=== PATIENT | female | born 1960 | race African-American/Black ===

== ENCOUNTER 2017-01-14 09:40 | Outpatient (CLI) | payer OTHER ==
--- NOTE | 2017-01-14 10:04 | RAD ---
RIGHT KNEE FOUR VIEWS: History: Right knee pain. FINDINGS: Joint spaces are preserved. No acute fracture, dislocation, or fluid distention of the suprapatellar bursa is apparent. IMPRESSION: No acute osseous abnormalities are demonstrated. POS: [facility]
== END 2017-01-14 09:41 | disposition home or self-care (01) ==
LOC: RAD-FRANK 09:40
PROVIDERS: ATTEND Internal Medicine
DX: N20.0 Calculus of kidney (principal)

== ENCOUNTER → 2017-03-14 | Day surgery (SDC) | payer OTHER ==
[2017-03-13 10:50] VITALS: BMI 19.6
[~2017-03-14] MED LIST: Fentanyl 100 MCG/2 ML VIAL ONE; Fentanyl 250 MCG/5 ML VIAL ONE; Furosemide 20 MG/2 ML VIAL ONE; Iothalamate Meglumine 60% 50 ML VIAL FS ONE; Midazolam HCl 2 mg/2 ml Vial ONE; Phenazopyridine HCl 97.5 MG TABLET ONE; cefTRIAXone\\ROCEPHIN 2 GM in Sodium Chloride 0.9% 100 ML IVPB SCH
[2017-03-14 06:47] LABS: #Eosinphils 0.7 thou/uL (0.0-0.7); #Monocytes 0.4 thou/uL (0.11-0.59); #Neutrophils 2.4 thou/uL (1.40-6.50); %Basophils 0.5 % (0.0-1.0); %Eosinophils 13.2 % (0.0-10.0); %Lymphocytes 36.2 % (21.0-51.0); %Monocytes 6.5 % (0.0-10.0); Hematocrit 35.7 % (36.0-47.0); Mean Platelet Volume 7.1 fL (7.4-10.4); Red Blood Cell (RBC) Count 3.69 mill/uL (4.20-5.40); White Blood Cell (WBC) Count 5.5 thou/uL (4.8-10.8)
[2017-03-14 07:13] LABS: Anion Gap 12 mmol/L (10-20); BUN (Urea Nitrogen) 8 mg/dL (9.8-20.1); Calc. Creatinine Clearance 85 mL/min (70-130); Calcium 9.9 mg/dL (7.8-10.44); Carbon Dioxide 26 mmol/L (22-29); Chloride 106 mmol/L (98-107); Estimated GFR-MDRD Greater than 90
--- NOTE | 2017-03-14 08:32 | RAD ---
TWO VIEWS CHEST: HISTORY: Preoperative chest radiograph. TECHNIQUE: PA and lateral views of the chest are obtained. FINDINGS: The lungs are well aerated. No evidence of active intrathoracic disease is seen. No evidence of eff usions, pneumonia, or pneumothorax is seen. IMPRESSION: Normal two views chest. POS: [facility]
--- NOTE | 2017-03-14 10:51 | OP ---
DATE OF PROCEDURE: 03/14/2017 PREOPERATIVE DIAGNOSES: 1. Bilateral renal calculi, staghorn type, N20.0 - B. 2. Recurrent Extended-Spectrum Beta-Lactamase Escherichia coli urinary tract infection, N39.0. 3. Postmenopausal status, N95.2. POSTOPERATIVE DIAGNOSES: 1. Bilateral renal calculi, staghorn type, N20.0 - B. 2. Recurrent Extended-Spectrum Beta-Lactamase Escherichia coli urinary tract infection, N39.0. 3. Postmenopausal status, N95.2. OPERATIVE PROCEDURES PERFORMED: 1. Left-sided extracorporeal shock wave lithotripsy, 77288 - L. 2. Right-sided extracorporeal shock with lithotripsy, 00889 - R. 3. Cystourethroscopy with bilateral stents, 96610 - B. 4. Left-sided retrograde pyelography, 68058. SURGEON: Gomez Goss M.D. BRIEF HISTORY AND INDICATION FOR HOSPITALIZATION AND PROCEDURES: Mr. 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 Schulte for her history of recurrent ESBL E. 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 The patient presented today for lithotripsy and stent placement as initial treatments for bilateral apparently germ-laden kidney ston es. TECHNICAL PROCEDURE: The patient was appropriately identified in the preoperative holding area. She was transported to the operative suite, placed in the supine position on a Dornier lithotripter tabl e. The patient underwent induction of general anesthesia by LMA and was positioned appropriately for cystoscopic evaluation. We performed cystoscopic evaluation using a 22-Cameroonian cystoscope sheath and a 30-degree lens. We introduced the scope sheath using an obturator to evaluate the patient's bladd er. There was efflux visible from left and right ureteric orifices and chronic changes associated wi th chronic cystitis. Cystoscopic evaluation was performed. We identified the left ureteric orifice and placed a 0.035 angled Glidewire into the left ureter and advanced this to the level of the renal pelvis. This identified some stones and some of which was faint in coloration suggesting possible st ruvite type stone. We placed a 5-Cameroonian Pollack catheter for irrigation during the course of the pro cedure in addition to introduction of contrast as necessary. We performed lithotripsy using a total of 1700 shocks to achieve reasonable destruction of the staghorn calculus on the left. We then perfo rmed cystoscopic evaluation again, performed retrograde pyelography in the left collecting system and then obtained adequate positioning for stent placement using a 0.035 angled Glidewire. We positione d a 4.5-Cameroonian x 28 cm ACMI stent in good position in the patient's collecting system adjacent to the fragmented stone. We removed the string from this and left the stent indwelling. The patient then underwent evaluation on the right side. We placed a 4.5-Cameroonian x 28 cm stent in the right collecting system. Using #fluorography, we could easily see that this was a much denser stone with lamella characteristic to it. There was only 1 large stone in the collecting system with multi ple layers present. We placed a 4.5 Cameroonian x 28 cm stent in the right collecting system also removin g the string from this stent. The patient received a total of 1700 shocks of lithotripsy on the left side to the staghorn with good destruction on the right side. We administered approximately 3500 sh ocks with partial destruction of the large stone. The patient intraoperatively received approximatel y 2.5 liters of IV fluid and 20 mg of Lasix. She was treated with gentamicin and Rocephin as prophyl axis for her ESBL E. coli. The patient's bladder was drained during the course of the cystoscopic ev aluation. She was subsequently awakened and transported from the operative suite in good condition a nd transferred to the postoperative recovery area breathing on her own. COMPLICATIONS: None. DRAINS: A two 4.5 x 28 cm double-J ureteral stents, one on the left ureteral and one on the right. ESTIMATED BLOOD LOSS: Less than 10 mL OPERATIVE FINDINGS: Good destruction on the left and apparent partial obstruction on the right, also bilateral stenting. Follow up in my office in about 2 weeks' time after a CT stone protocol study p erformed here at [facility].
--- NOTE | 2017-03-17 12:19 | EKG ---
Test Reason : PREOP Blood Pressure : / mmHG Vent. Rate : 048 BPM Atrial Rate : 048 BPM P-R Int : 164 ms QRS Dur : 088 ms QT Int : 428 ms P-R-T Axes : 063 037 052 degrees QTc Int : 382 ms Marked sinus bradycardia Early repolarization Abnormal ECG Confirmed by JESSICA SMITH ([id number]) on 03/17/2017 12:19:13 PM Referred By: BERNARDO GARCIA Confirmed By:JESSICA SMITH
== END ==
LOC: SDC 05:57
PROVIDERS: ATTEND Urology
PROC: 0TF6XZZ Fragmentation in Right Ureter, External Approach (ICD-10-PCS; principal; 2017-03-14)
PROC: 0T788DZ Dilation of Bilateral Ureters with Intraluminal Device, Via Natural or Artificial Opening Endoscopic (ICD-10-PCS; principal; 2017-03-14)
PROC: 0TF7XZZ Fragmentation in Left Ureter, External Approach (ICD-10-PCS; principal; 2017-03-14)
DX: N20.0 Calculus of kidney (principal); N39.0 Urinary tract infection, site not specified; B96.29 Other Escherichia coli [E. coli] as the cause of diseases classified elsewhere; F17.210 Nicotine dependence, cigarettes, uncomplicated; I10 Essential (primary) hypertension; K21.9 Gastro-esophageal reflux disease without esophagitis; Z78.0 Asymptomatic menopausal state; Z79.899 Other long term (current) drug therapy; Z98.890 Other specified postprocedural states
CPT/HCPCS: 71020; 80048; 85025; 87070; 87102; 87205; 87206; 93005; 93010; 96374; C1758; C1769; J0696; J1580; J1940; J2250; J3010; J7050; Q9961

== ENCOUNTER 2017-04-08 13:34 | Outpatient (CLI) | payer OTHER ==
--- NOTE | 2017-04-08 15:28 | CT ---
CT ABDOMEN AND PELVIS WITHOUT CONTRAST STONE PROTOCOL: HISTORY: Kidney stones. Bilateral kidney stones with stents in both ureters. Pain to the right flank. COMPARISON: Comparison with CT 09/27/16. FINDINGS: Bilateral in situ stents of the ureters are present. There is mild bilateral perinephric stranding. There are very large calculi within the right interpolar renal collecting system and the left inferi or and intrarenal collecting systems extending to the renal pelvis. The urinary bladder is without c alculus. No calculi are seen along the ureteral stents. Overall, the perinephric stranding has impr tom since the 09/27/16 examination on the right, although is similar on the left. Noncontrast evaluation of the liver, pancreas, spleen unremarkable. Nonspecific retroperitoneal foreign opathy is present, similar. These mildly prominent lymph nodes are likely reactive. Mild degenerati ve changes of both hips seen below the pubic symphysis. IMPRESSION: Extensive calcifications throughout the renal pelves bilaterally with casting appearance that is oracle distribution consultant mariluz in nature. The ureteral stents are in situ. Perinephric stranding on both kidneys is improved f rom the comparison examination, although some does persist, likely sequelae of low-grade chronic obst ructive process. POS: [facility]
== END 2017-04-08 13:35 | disposition home or self-care (01) ==
LOC: CT 13:34
PROVIDERS: ATTEND Urology
DX: N20.0 Calculus of kidney (principal); N39.0 Urinary tract infection, site not specified; N28.89 Other specified disorders of kidney and ureter
CPT/HCPCS: 74176

== ENCOUNTER 2017-04-28 08:56 | Inpatient (IN) | payer OTHER ==
[2017-05-09 08:54] VITALS: BMI 19.6
[2017-05-12] MEDS ORDERED: CEFAZOLIN/Water 2 GM/20 ML SYRINGE ONE (06:36)
[2017-05-12] MEDS ORDERED: Iothalamate Meglumine 60% 50 ML VIAL FS ONE ×2 (06:44→07:08)
[2017-05-12 07:02] LABS: Anion Gap 11 mmol/L (10-20); BUN (Urea Nitrogen) 8 mg/dL (9.8-20.1); Calc. Creatinine Clearance 80 mL/min (70-130); Calcium 10.3 mg/dL (7.8-10.44); Carbon Dioxide 32 mmol/L (22-29); Chloride 102 mmol/L (98-107); Estimated GFR-MDRD 88; Glucose 91 mg/dL (70-105); Potassium 3.5 mmol/L (3.5-5.1); Sodium 141 mmol/L (136-145)
[2017-05-12] MEDS ORDERED: Fentanyl 100 MCG/2 ML VIAL ONE ×4 (07:06→13:55)
[2017-05-12 09:26] LABS: Bilirubin Negative (Negative); Blood, Urine Large (Negative); Clarity TURBID (Clear); Glucose, Urine (Dipstick) Negative (Negative); Leukocyte Large (Negative); Nitrite Negative (Negative); Protein, Urine (Dipstick) 300 mg/dL (Neg-Trace); Specific Gravity, Urine 1.019 (1.002-1.036); Urobilinogen 0.2 mg/dL (0.2-1.0); pH, Urine 7.5 (5.0-9.0)
[2017-05-12 09:28] LABS: Bacteria/HPF None Seen HPF (None Seen); Pathc Cast-AUWi Flag 1.81 (0-2.49); RBC/HPF GREATER THAN 50-TNTC HPF (0-3); Squamous Epithelial 0-3 HPF (0-3)
[2017-05-12 09:35] LABS: Hyaline Casts/LPF 0-3 HYALINE CAST LPF (0-3 Hyaline)
[2017-05-12] MEDS ORDERED: Promethazine HCl 25 MG/ML VIAL ONE (13:19)
[2017-05-12] MEDS ORDERED: Labetalol HCl 100 MG/20 ML VIAL ONE (13:22)
[2017-05-12] MEDS ORDERED: Promethazine HCl 25 MG/ML VIAL IM PRN (13:25)
[2017-05-12] MEDS ORDERED: Ondansetron HCl/PF 4 MG/2 ML Vial IVP PRN (13:25)
[2017-05-12] MEDS ORDERED: Promethazine HCl 25 MG/ML VIAL SLOW IVP PRN (13:25)
[2017-05-12] MEDS ORDERED: Morphine 5 MG/ML SYRINGE SLOW IVP PRN (14:42)
[2017-05-12] MEDS ORDERED: diphenhydrAMINE 25 MG CAP PO PRN ×2 (14:46→14:47)
[2017-05-12] MEDS ORDERED: Dexamethasone 20 MG/5 ML VIAL ONE (14:54)
[2017-05-12] MEDS ORDERED: Lidocaine 1% PF 5 ML VIAL ONE (14:54)
[2017-05-12] MEDS ORDERED: PHENYLEPHRINE-NS 100 MCG/ML 10 ML SYRINGE ONE (14:54)
[2017-05-12] MEDS ORDERED: Propofol 200 MG/20 ML VIAL ONE (14:54)
[2017-05-12] MEDS ORDERED: Ondansetron HCl/PF 4 MG/2 ML Vial ONE (14:54)
--- NOTE | 2017-05-12 14:54 | OP ---
DATE OF PROCEDURE: 05/12/2017 PREOPERATIVE DIAGNOSES: 1. Bilateral renal calculi, N20.0 bilateral. 2. History of sepsis. 3. Pyelonephritis. 4. Recurrent urinary tract infection N39.0. OPERATIVE PROCEDURES PERFORMED: 1. Left-sided percutaneous nephrolithotomy greater than 2.5 cm, 93561-AL. 2. Right-sided percutaneous nephrolithotomy with greater than 2.5 cm, 61007-MW- [id number]. 3. Right renal access with dilation, 82591-YF-01. SPECIMENS REMOVED: Left renal calculi for chemical analysis. BRIEF HISTORY AND INDICATION FOR HOSPITALIZATION, Ms. 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 Schulte to my clinic for recurrent ESBL Escherichia coli urinary tract infection with history of nephrolithiasis. The patient has had 5 UTIs in the last year with the same organism and has had progressively increasing resistance. She has had pyelonephritis type symptoms as well as sepsis evidence in the past. The patient is admitted for treatment of bilateral kidney stones after previous extracorporeal shockwave lithotripsy was performed. TECHNICAL PROCEDURE: The patient was appropriately identified in the preoperative holding area and informed written consent obtained. The patient was transported to the operative suite, placed in the supine position on her transport bed and received general anesthesia by intubation. After general endotracheal intubation, the patient was subsequently rolled to the prone superman position using a gel padded neuro table. The patient was then fluorographically evaluated and was noted to have radiodensities overlying both left and right kidney. She has bilateral indwelling percutaneous nephrostomy tubes and bilateral double-J stents. A Smith catheter was placed prior to going to the patient to the prone superman position. The patient's back was then prepped and draped in usual sterile fashion, removing existing dressings and prepping the upper tubes into place. We initiated her procedure on the patient's right side. We performed tract dilation by placing a 0.035 angled Glidewire down the existing nephrostomy tube subsequently angling this down the patient's ureter. The patient's tube was found to lie inferior to the location of the radiodensity observed fluorographically. We did go ahead and dilate the tract in case there was a secondary access into the collecting system on that side performed cutaneous pyelography and did demonstrate that the stone collection appeared to communicate with the patient's renal pelvis. Only small amount of dye would enter into the area where the stone was located. We subsequently performed a secondary access using a Rivono percutaneous renal access system. We placed a 25 gauge finder needle into the patient's kidney into the area of calcification. I then placed an 18 gauge secondary needle into this same location using fluorographic guidance. We passed a 0.035 angled Glidewire also down this wire subsequently performed dilation of the tract. We utilized a fascial incising needle and [employer] NephroMax dilation balloon. We dilated the tract to 30-East Timorese. We advanced an access sheath over this and performed nephroscopy of the patient's collecting system. We found areas of calcification in the rhodes of the cyst in which we had entered. A large amount of the radiodensity cleared during irrigation suggesting calcium milk present in this area. There did remain a shell of calcification suggesting a degree of nephrocalcinosis of the patient's renal parenchyma in this location. We were not able to identify any intact stones, although some small stone particles were identified as well as an existing stent on the patient's right side. After percutaneous nephroscopy, we placed a 0.035 secondary Glidewire and then passed a 20-East [place]orese moapa tip catheter over the Glidewire into the patient's collecting system. We placed a secondary 20- [place]se tube into the patient's collecting system via the lateral access that we had created. We placed two 5-East Timorese Pollack catheters through the lumen of these moapa tipped catheters and secured these to the patient's side. We estimated blood loss at this point was about 150 mL. There were no stone fragments which are large enough recovery at this point. We then sterilely reprepped on the patient's left side. I performed a similar procedure using a dilation balloon and the existing percutaneous nephrostomy tract. An existing percutaneous nephrostomy tube was removed after placement of a 0.035 angled Glidewire in the patient's collecting system. We then advanced this into the patient's ureter adjacent to the existing stent. The patient then had a secondary wire placed. We secured the safety wire to the patient's side with silk. We then performed fascial incising with a 1 cm blade and subsequently balloon dilated the tract using the NephroMax system. We advanced the access sheath into the patient's renal collecting system and then utilized the nitinol NCircle basket to recover some stone fragments from previous ESWL. These fragments were sent for chemical analysis. The patient's collecting system was then cleared of residual degrees using ultrasonic lithotripter. The patient's collecting system was essentially left stone free by fluorographic evaluation. We placed a new nephrostomy tube, a 20-East Timorese moapa tip catheter over a 5- [place]orese Pollack catheter which was advanced into the patient's ureter. The catheter was placed to bag drainage. The patient has an existing ureteral stent on the left side as well. The drain was secured to the patient's side using 0 silk suture. One skin level bleeder was cauterized. A sterile dressing was applied to both the left and right sides and securing the patient' s back using Microfoam tape. An existing Smith catheter was left in place. SPECIMENS: Left-sided kidney stone for chemical analysis. All the stone was not recovered, most of this was suctioned out. DRAINS: The patient has 2 right-sided drains which are both 20-East Timorese catheters with 5-East Timorese Pollack catheters through the lumen. The patient has an indwelling Smith catheter. On the patient's right side, there is a 20- East [place]orese moapa tip catheter with a 5-East Timorese Pollack reaccess catheter. The patient has existing bilateral double-J stents which remained in position. COMPLICATIONS: None. Total blood loss 300 mL COMPLICATIONS: None evident. Lap, instrument, and needle counts correct at the end of the procedure. [facility]
[2017-05-12] MEDS: Sodium Chloride 0.9% 1,000 ML IV SCH ×3 (16:21→23:57)
--- NOTE | 2017-05-12 18:50 | RAD ---
KUB: Date: 05-12-17 Comparison: None. History: Bilateral percutaneous nephrostomy tube placement. FINDINGS: Lobulated calcification in right upper quadrant suggests large right renal calculus measuring up to 3 .9 x 3.6 cm. Calcification in left upper quadrant measures up to 1.7 cm, evidence of an additional la rge renal stone. There is a double J ureteral stent present on the left with a curl overlying the exp ected location of the left renal pelvis and a curl within the urinary bladder. There is an additional internal external drain on the left which terminates over the distal left ureter. There is an help desk internship al/external drain on the right, terminating over the region of the distal right ureter. Two segments of catheter tubing overlie the right upper quadrant suggesting percutaneous drains. A similar single percutaneous drain overlies the left upper quadrant. In addition, there is a segment of tubing which overlies the expected location of the distal right ureter extending into the urinary bladder which rodgers ggests a distally migrated right double J ureteral stent. IMPRESSION: Bilateral renal calculi with numerous stents associated with bilateral tracts. POS: [facility]
[2017-05-12] MEDS: CEFAZOLIN 1 GM, Syringe 2.5 ML in Sterile Water 7.5 ML SLOW IVP SCH (21:02)
[2017-05-13] MEDS: HYDROcodone/Acetaminophen 5/325 mg Tablet PO PRN ×4 (00:44→19:55)
[2017-05-13] MEDS: CEFAZOLIN 1 GM, Syringe 2.5 ML in Sterile Water 7.5 ML SLOW IVP SCH (05:21)
[2017-05-13 06:11] LABS: #Monocytes 0.4 thou/uL (0.11-0.59); #Neutrophils 4.8 thou/uL (1.40-6.50); %Basophils 0.1 % (0.0-1.0); %Eosinophils 0.4 % (0.0-10.0); %Lymphocytes 16.3 % (21.0-51.0); %Monocytes 6.5 % (0.0-10.0); %Neutrophils 76.7 % (42.0-75.0); Hemoglobin 8.2 g/dL (12.0-16.0); Mean Corpuscular HGB CONC 32.3 g/dL (32.0-36.0); Mean Corpuscular Hemoglobin 30.5 pg (27.0-31.0); Mean Corpuscular Volume 94.6 fl (81.0-99.0); Mean Platelet Volume 7.3 fL (7.4-10.4); Platelet Count 258 thou/uL (130-400); RBC Distribution Width 14.5 % (11.5-14.5); Red Blood Cell (RBC) Count 2.69 mill/uL (4.20-5.40); White Blood Cell (WBC) Count 6.3 thou/uL (4.8-10.8)
[2017-05-13 06:51] LABS: ALT (SGPT) 7 U/L (8-55); AST (SGOT) 14 U/L (5-34); Albumin 3.1 g/dL (3.5-5.0); Alkaline Phosphatase 78 U/L (40-150); Anion Gap 11 mmol/L (10-20); BUN (Urea Nitrogen) 8 mg/dL (9.8-20.1); Bilirubin, Total 0.2 mg/dL (0.2-1.2); Calc. Creatinine Clearance 65 mL/min (70-130); Calcium 8.2 mg/dL (7.8-10.44); Carbon Dioxide 25 mmol/L (22-29); Chloride 107 mmol/L (98-107); Estimated GFR-MDRD 70; Globulin 2.6 g/dL (2.4-3.5); Glucose 117 mg/dL (70-105); Potassium 3.7 mmol/L (3.5-5.1); Protein, Total 5.7 g/dL (6.0-8.3); Sodium 139 mmol/L (136-145)
[2017-05-13] MEDS: Sodium Chloride 0.9% 1,000 ML IV SCH ×3 (06:51→19:41)
[2017-05-13] MEDS: Vancomycin HCl 1 GM in Premix Bag 1 BAG IVPB SCH ×2 (10:46→22:40)
[2017-05-13] MEDS: Piperacillin/Tazobactam 3.375 GM in Sodium Chloride 0.9% 100 ML IVPB SCH ×2 (10:46→18:00)
--- NOTE | 2017-05-13 10:53 | CT ---
CT OF THE ABDOMEN AND PELVIS WITHOUT CONTRAST: Comparison: 04-08-17 History: Kidney stones. Status post lithotripsy percutaneously. Technique: Multiple contiguous axial images were obtained in a CT of the abdomen and pelvis without c ontrast. Coronal reformats were performed. FINDINGS: Patient has bilateral percutaneous nephrostomies. The left percutaneous nephrostomy appears in good p osition within the hilar region. The right percutaneous nephrostomy passes immediately adjacent to a large stone in the right hilar region of the kidney and is seen in the more anterior aspect of the ki dney. This could be within an enlarged marion anteriorly. A calcification on the right measures 3.5 cm in size. There are calcifications on the left measuring up to 6 mm in size. Ureteral stents are seen with their pigtail portions in the urinary bladder. A Smith catheter is seen within the urinary blad shantelle. There is hyperdense material in the gallbladder which could represent sludge or stones. There is a hy podensity in the right lobe of liver measuring 1.4 cm in size which could represent a cyst. The adren al glands, spleen, and pancreas are unremarkable although evaluation is limited on this noncontrast e xamination. A moderate amount of free fluid is seen in the pelvis which is nonspecific. The reproductive organs a re unremarkable. There are small retroperitoneal lymph nodes measuring up to 1.3 cm in greatest dimen naren. No pelvic adenopathy is seen. There is bibasilar atelectasis. The abdominal wall soft tissues are unremarkable. The bones are unrem arkable. IMPRESSION: 1. Bilateral percutaneous nephrostomy tubes as above. 2. Bilateral renal calculi. 3. Nonspecific free fluid in the pelvis. This could represent simple ascites, however, a urine leak i nto the peritoneal cavity is also a possibility. 4. Hepatic cyst. POS: [facility]
[2017-05-13] MEDS: Acetaminophen 325 MG TAB PO PRN ×2 (12:02→19:56)
[2017-05-13] MEDS: Ondansetron ODT 8 MG TAB PO PRN (12:05)
--- NOTE | 2017-05-13 13:20 | RAD ---
PERCUTANEOUS NEPHROSTOMY WITH FLUOROSCOPY: HISTORY: Renal calcifications. FINDINGS/IMPRESSION: A single limited intraoperative fluoroscopic view from a percutaneous nephrostomy was submitted for i nterpretation. There are large calcifications projecting over the right kidney. There appears to be a percutaneous nephrostomy tube. There is also a pigtail catheter in the region of the renal pelvis, which extends down the ureter. POS: [facility]
--- NOTE | 2017-05-13 13:29 | RAD ---
PERCUTANEOUS NEPHROSTOMY TUBE WITH FLUOROSCOPIC EXAM: HISTORY: Nephrolithiasis. Nephrostomy tube placement in the OR. FINDINGS/IMPRESSION: A single limited intraoperative fluoroscopic view was submitted for interpretation. A wire is seen i n the location where a percutaneous nephrostomy tube would be present, on the left. There is also a ureteral stent with the pigtail portion of the catheter projecting over the region of the left renal pelvis. There are small calcifications projecting over the left kidney. POS: [facility]
[2017-05-14] MEDS: Piperacillin/Tazobactam 3.375 GM in Sodium Chloride 0.9% 100 ML IVPB SCH ×3 (01:20→18:12)
[2017-05-14] MEDS: HYDROcodone/Acetaminophen 5/325 mg Tablet PO PRN ×4 (01:21→20:11)
[2017-05-14] MEDS: Sodium Chloride 0.9% 1,000 ML IV SCH ×3 (05:16→22:40)
[2017-05-14] MEDS: Acetaminophen 325 MG TAB PO PRN ×3 (05:16→20:06)
[2017-05-14] MEDS: Ondansetron ODT 8 MG TAB PO PRN (09:55)
[2017-05-14] MEDS: Vancomycin HCl 1 GM in Premix Bag 1 BAG IVPB SCH ×2 (11:12→22:40)
[2017-05-14 22:24] LABS: Vancomycin, Trough 11.9 ug/mL
[2017-05-14] MEDS ORDERED: Simethicone Chewable 80 MG TAB PO PRN (23:16)
--- NOTE | 2017-05-14 23:32 | PRG ---
DATE OF SERVICE: 05/14/2017. BRIEF HISTORY: Ms. Anu De Los Santos is a very pleasant 57-year-old - [place] female with bilateral nephrolithiasis and a history of extended spectrum beta lactamase-resistant E. coli with history of multiple recurrent urinary tract infections and pyelonephritis episodes as well as bilateral kidney stones. She presented on 05/12/2017 and underwent bilateral percutaneous nephrolithotomy procedure. Postoperatively, she has developed a fever. She has had cultures drawn, which so far have not grown any organisms. We did change her antibiotic regimen to Zosyn and vancomycin yesterday. The patient overall reports that she feels well, except she is having some nausea troubles. She is not eating during the day secondary to that as it makes her feel bloated. I discussed with her if she was having any pain symptoms at this point. She does not report any actual pain that is not well controlled with her current medication regimen. She does have 2 percutaneous nephrostomy tubes on the left, 1 percutaneous nephrostomy tube on the right, bilateral indwelling double-J stents, and a Smith catheter is essentially completely drained from the urinary system standpoint. PHYSICAL EXAMINATION: VITAL SIGNS: T-max is 100.2. Vital signs are otherwise normal. HEAD, EYES, EARS, NOSE, AND THROAT: Extraocular movements are intact. Sclerae are anicteric. Oropharynx is clear. NECK: Supple. LUNGS: Clear to auscultation bilaterally. CARDIAC: Regular rate and rhythm. ABDOMEN: Soft and nontender. Percussion reveals increased resonance in all 4 quadrants consistent with an ileus. The 2 tubes on the left appeared appropriately positioned, did not appear to be draining abnormally. The drainage is only coming from one of the 2 tubes, which is the more medial of the 2 tubes. The drainage output appears normal with normal clear urine and a very small amount of blood, which settles out. The patient's right side appears very similar to that. Smith catheter does have a degree of gross hematuria present. LABORATORY STUDIES: The patient's blood cultures x2 were negative for growth. Urine culture also negative for growth. The patient has no other labs from today. ASSESSMENT AND PLAN: 1. Bilateral kidney stones with extended spectrum beta lactamase Escherichia coli exposure and history of recurrent pyelonephritis episodes as well as recurrent urinary tract infections. We will plan on proceeding to the operating room on Friday for second look PCNL procedure if the patient continues to improve. 2. Infectious disease. The patient does have a decreasing temperature profile on current antibiotic therapy. I suspect the patient's extended spectrum beta lactamase Escherichia coli would be the causative agent given the past pyelonephritis episodes and exposure of her stones to the extended spectrum beta lactamase Escherichia coli. We did additionally add vancomycin for coverage of MRSA because she has percutaneous nephrostomy tubes, which have been present for over a week. The patient does appear to be improving from a medical standpoint and I suspect she may be suitable to return to the operating room on Friday if she has continued progress. This bedside visit lasted over 35 minutes over half of ic was in direct face to face evaluation and in coordination of care, exclusive of any procedures performed. [id number] MTDD
[2017-05-15] MEDS: Piperacillin/Tazobactam 3.375 GM in Sodium Chloride 0.9% 100 ML IVPB SCH ×3 (01:54→17:49)
[2017-05-15] MEDS: HYDROcodone/Acetaminophen 5/325 mg Tablet PO PRN ×4 (09:10→22:42)
[2017-05-15] MEDS: Vancomycin HCl 1 GM in Premix Bag 1 BAG IVPB SCH ×2 (11:36→22:44)
[2017-05-15] MEDS: Sodium Chloride 0.9% 1,000 ML IV SCH ×3 (13:15→22:13)
[2017-05-15 16:14] LABS: CA Oxalate Dihydrate 20 % (.); CA Oxalate Monohydrate 75 % (.); Color Brown (.); Comment Note: (.); Stone Weight 230.3 mg (.)
[2017-05-15] MEDS: Ondansetron ODT 8 MG TAB PO PRN (22:13)
[2017-05-15] MEDS ORDERED: ALPRAZolam 1 MG TAB PO PRN (22:25)
[2017-05-15 22:30] LABS: Vancomycin, Trough 15.4 ug/mL
--- NOTE | 2017-05-15 23:48 | PRG ---
DATE OF HOSPITAL ADMISSION: 05/13/2017 DATE OF SERVICE: 05/15/2017 BRIEF HISTORY: Ms. 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 HOSPITAL COURSE: The patient has been doing reasonably well overnight, but had return of bowel function today and has been nauseated and recently developed diarrhea. She is on antibiotic coverage for a fever which she had earlier in the week. Her fever has resolved on vancomycin and Zosyn. T-max in the last 24 hours is 100.2 F with the highest temperature is today of 99.7. PHYSICAL EXAMINATION: GENERAL: This is a pleasant, awake, alert, ambulatory, -Pakistani female in no distress. She does report discomfort associated with resulting ileus. She has some diarrhea today. She did have a bowel preparation prior to her operation on Friday and has had relatively slow bowel function secondary to narcotics and bladder spasm medications. The patient did have resolution of her ileus today with production of loose stool consistent with the patient's bowel preparation prior to her procedure. The patient continues with PCN tubes to both the left and right kidney. The patient is tolerating those reasonably well. She does have an indwelling Smith catheter as well. LUNGS: No respiratory distress. No wheezing. Lungs clear. CARDIAC: Regular rate and rhythm. ABDOMEN: Soft and nontender with hyperactive bowel sounds noted. BACK: Percutaneous nephrostomy tubes as previously noted and remain in place and draining more or less straw colored urine with a small amount of bloody particulate. LABORATORY STUDIES: The patient has not had standard laboratories in the last 24 hours. Her microbiology evaluation from 05/13/2017 showed no growth and her blood cultures at 48 hours and her urine culture has been negative at 48 hours as well, consistent with the patient's appropriate coverage on preoperative antibiotics. ASSESSMENT AND PLAN: Bilateral residual kidney stones. The patient will proceed to the operating room for bilateral percutaneous nephrolithotomy on Friday05/16/2017. We will make her n.p.o., place her on FLORY hose and sequential compression devices and plan on proceeding to the operating room on Friday. This bedside visit lasted over 35 minutes over half of ic was in direct face to face evaluation and in coordination of care, exclusive of any procedures performed. [id number] [facility]
[2017-05-16] MEDS: Piperacillin/Tazobactam 3.375 GM in Sodium Chloride 0.9% 100 ML IVPB SCH ×3 (01:52→22:00)
[2017-05-16] MEDS: Sodium Chloride 0.9% 1,000 ML IV SCH ×3 (03:50→22:24)
[2017-05-16] MEDS: HYDROcodone/Acetaminophen 5/325 mg Tablet PO PRN ×2 (05:17→10:29)
[2017-05-16 05:51] LABS: Hemoglobin 6.1 g/dL (12.0-16.0)
[2017-05-16 06:12] LABS: ALT (SGPT) Less than 7 U/L (8-55); AST (SGOT) 12 U/L (5-34); Albumin 2.5 g/dL (3.5-5.0); Alkaline Phosphatase 73 U/L (40-150); Anion Gap 7 mmol/L (10-20); BUN (Urea Nitrogen) 7 mg/dL (9.8-20.1); Bilirubin, Total 0.3 mg/dL (0.2-1.2); Calc. Creatinine Clearance 81 mL/min (70-130); Calcium 8.2 mg/dL (7.8-10.44); Carbon Dioxide 26 mmol/L (22-29); Chloride 112 mmol/L (98-107); Estimated GFR-MDRD 89; Globulin 2.6 g/dL (2.4-3.5); Glucose 90 mg/dL (70-105); Potassium 3.2 mmol/L (3.5-5.1); Protein, Total 5.1 g/dL (6.0-8.3); Sodium 142 mmol/L (136-145)
[2017-05-16] MEDS: Vancomycin HCl 1 GM in Premix Bag 1 BAG IVPB SCH ×2 (11:48→22:24)
[2017-05-16] MEDS ORDERED: Iothalamate Meglumine 60% 50 ML VIAL FS ONE (15:00)
[2017-05-16] MEDS ORDERED: Bupivacaine HCl 0.5%/Epinephrine 1:200,000/PF 30 ml Vial ONE (15:00)
[2017-05-16] MEDS ORDERED: Glycopyrrolate 0.2 MG/ML 5 ML SYRINGE ONE (15:07)
[2017-05-16] MEDS ORDERED: Propofol 200 MG/20 ML VIAL ONE (15:07)
[2017-05-16] MEDS ORDERED: Lidocaine 1% PF 5 ML VIAL ONE (15:07)
[2017-05-16] MEDS ORDERED: Fentanyl 100 MCG/2 ML VIAL ONE ×3 (15:27→21:09)
[2017-05-16] MEDS ORDERED: Midazolam HCl 2 mg/2 ml Vial ONE (15:27)
[2017-05-16] MEDS ORDERED: Piperacillin/Tazobactam 3.375 GM VIAL ONE (16:19)
[2017-05-16] MEDS ORDERED: B & O ONE (20:35)
[2017-05-16] MEDS ORDERED: Furosemide 20 MG/2 ML VIAL ONE (20:46)
--- NOTE | 2017-05-16 20:59 | RAD ---
NEPHROSTOGRAM: 05/16/17 Four fluoroscopic images from OR presented from cysto with stent placement and lithotripsy procedure. FINDINGS/IMPRESSION: These films demonstrate percutaneous nephrostomy placement and lithotripsy procedure. POS: REY
[2017-05-16] MEDS ORDERED: Promethazine HCl 25 MG/ML VIAL IM PRN (21:10)
[2017-05-16] MEDS ORDERED: Promethazine HCl 25 MG/ML VIAL SLOW IVP PRN (21:10)
[2017-05-16] MEDS ORDERED: Ondansetron HCl/PF 4 MG/2 ML Vial IVP PRN (21:10)
[2017-05-16] MEDS ORDERED: HYDROmorphone 2 MG/ML VIAL SLOW IVP PRN (21:10)
[2017-05-17] MEDS: Piperacillin/Tazobactam 3.375 GM in Sodium Chloride 0.9% 100 ML IVPB SCH ×2 (01:53→10:04)
[2017-05-17] MEDS: Sodium Chloride 0.9% 1,000 ML IV SCH ×2 (06:13→15:56)
--- NOTE | 2017-05-17 07:31 | OP ---
DATE OF HOSPITAL ADMISSION: 05/12/2017 DATE OF PROCEDURE: 05/16/2017 PREOPERATIVE DIAGNOSES: 1. Bilateral renal calculi, N20.0 - B. 2. History of ESBL Escherichia coli urinary tract infection with sepsis symptoms and bilateral kidney stone contamination, N39.0. 3. History of pyelonephritis. 4. Recurrent urinary tract infection due to same organism. POSTPROCEDURAL DIAGNOSES: 1. Bilateral renal calculi, N20.0 - B. 2. History of ESBL Escherichia coli urinary tract infection with sepsis symptoms and bilateral kidney stone contamination, N39.0.. 3. History of pyelonephritis. 4. Recurrent urinary tract infection due to same organism. OPERATIVE PROCEDURES PERFORMED: 1. Bilateral percutaneous nephrolithotomy with ultrasonic lithotripsy greater than 2 cm, [id number]. 2. Cystourethroscopy with bilateral stent placement, [id number]. BRIEF HISTORY AND INDICATION FOR PROCEDURE: Ms. 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 She was referred by Dr. Schulte to my clinic due to recurrent ESBL Escherichia coli urinary tract infection with a history of nephrolithiasis. The patient had at least 5 UTIs in the last year with the same organism with progressively increasing antibiotic resistance. The patient had a pyelonephritis symptoms as well as sepsis in the past due to this. She elected to undergo initial treatment by ESWL and this did not results resolution of her stone problem. Instead she had persistence of stones in both of her kidneys. She opted to undergo percutaneous nephrolithotomy and presented for her initial portion of that procedure on 05/12/2017. Today, she opted to proceed to the operating room for a second bilateral percutaneous nephrolithotomy procedure and we did proceed with that today. TECHNICAL PROCEDURE: The patient was appropriately identified in the preoperative holding area, informed written consent was obtained. The patient received her current prophylactic antibiotics and was transported to the operative suite, placed in the supine position. Initially general anesthesia was established and the patient was then turned prone on a radiolucent spine table for the percutaneous nephrolithotomy procedure. All contact points with the bed were appropriately padded. The patient's chest and pelvis were supported with large 10-inch foam rolls. Gel padding or appropriate foam padding was utilized in other occasions. Once the patient was turned to the prone position, the existing dressings were removed from her bilateral percutaneous nephrostomy tubes. A Smith catheter was already in place from her previous for treatment. The patient underwent sterile prep and drape in usual fashion. We then proceeded with a right-sided percutaneous nephrolithotomy using an existing tract. We performed ultrasonic lithotripsy of a large stone that was previously seen on CT scan imaging. We tried to clear all the fragments that we could. There did appear to be 1 mid upper pole marion which we could not access via our accesses. After complete clearance of all the visible stone, we placed a 20-Japanese port gamble tip catheter with a 5-Japanese Pollack reaccess catheter if necessary. The patient had this catheter sutured to her side. Sterile dressing was applied at the close of the procedure with regard to that. We then subsequently reprepped the patient at this time addressing her right- sided kidney stones after previously addressing the left side. Two tubes in place on the right side and by CT scan imaging and fluorographic evaluation to establish the stone lie between these two catheters. We performed a careful evaluation and found that an endothelialization of the calculus had occurred. We performed combination ultrasonic lithotripsy with pneumatic impulse treatment of the large, over 2 cm stone on the patient's right side. During the course of this procedure, we did remove the lateral access to the patient's kidney this partially obstructed stone removal. We performed complete lithotripsy, completely clearing the patient's left kidney of any stone fragments. We utilized the ultrasonic lithotripter to clear adherent stone fragments as well. We left the collecting system completely clear by fluorographic evaluation. We placed a reaccess catheter into the more medial of the two accesses and placed a 5 Japanese Pollack catheter via that into the patient's ureter for immediate reaccess if required. Balloon on the right side was inflated to 300 mL as it had been on the left side as well. The catheter was then sutured to the patient's back. We applied sterile dressing and then turned the patient to the supine lithotomy position. The patient was reprepped and draped, performed cystoscopic evaluation, recovered to dislodge stents out of the patient's bladder and then placed two 4.5 Japanese x 28 cm double-J ureteral stents into the bilateral ureters to allow drainage of the collecting system for any stone fragments that we were missed. The patient was subsequently returned to the supine position, was awakened and extubated in the operative suite. She was transferred to a rrandolph bed. Due the patient's starting hematocrit of 18, we opted to treat the patient with 2 units of red blood cells during the operation and in addition 1800 mL of crystalloid was utilized. Estimated blood loss for this procedure is 300 mL. Specimens recovered from the right kidney were sent for chemical analysis as these were large. We did perform ultrasonic lithotripsy on the patient's left side, but these fragments were not recovered for chemical analysis. DRAINS AND TUBES: A total of 2 stents were removed and 2 stents were placed during this operation. Three percutaneous nephrostomy tubes were removed and replaced with 2 new nephrostomy tubes, 1 on the left and 1 on the right. OPERATIVE FINDINGS: The patient has very dense probable calcium oxalate type stone, which is present in layers suggesting possible incorporation of microorganism in the multilayer stones. We achieved good clearance of the patient's stone burden on the right side and at least a fair clearance of a stone burden on the left. The remaining calices that contained stone are inaccessible without performing additional percutaneous access or ureteroscopy. COMPLICATIONS: None. Lap, instrument, and needle counts correct. DISPOSITION: The patient transported to the postoperative recovery area in good condition. TARA
[2017-05-17] MEDS: HYDROcodone/Acetaminophen 5/325 mg Tablet PO PRN ×2 (08:22→12:55)
[2017-05-17 10:24] LABS: Vancomycin, Trough 15.9 ug/mL
[2017-05-17] MEDS: Vancomycin HCl 1 GM in Premix Bag 1 BAG IVPB SCH (11:15)
[2017-05-17 12:13] VITALS: BP 142/88; TEMP 98.4
--- NOTE | 2017-05-17 13:13 | CT ---
PRELIMINARY REPORT/[facility]/EMERGENCY AFTER HOURS PROCEDURE: EXAM: CT Abdomen and Pelvis Without Intravenous Contrast CLINICAL HISTORY: 57 years old, female; Screening exam; Post surgical status; Pcnl; Percutaneous nephrolithotomy; Prior surgery; Surgery date: Post-operative (0-2 days); Patient HX: S/P percutaneous nephrolithotomy TECHNIQUE: Axial computed tomography images of the abdomen and pelvis without intravenous contrast. Coronal refo rmatted images were created and reviewed. COMPARISON: No relevant prior studies available. FINDINGS: Lower thorax: Small left pleural effusion. Left greater than right dependent atelectasis. Small peric ardial effusion. ABDOMEN: Liver: Unremarkable. Gallbladder and bile ducts: Unremarkable. Pancreas: Unremarkable. Spleen: See below. Adrenals: Normal. 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 Multiple small stone fragments and calcifications in both kidneys includ ing in the renal pelvis on the right, along with bubbles of collecting system gas. Bilateral percutaneous nephroureterostomy tubes and ureteral stents. 2 mm stone suggested along the midportion of the right ureter. Otherwise, no ureteral stone identified. Moderate bilateral perinephric fat stra nding and ill-defined fluid extending along the pararenal spaces bilaterally. Stranding along the ure ters. Small amount of intermediate density suggestive of hematoma along the quadratus lumborum on the left containing a few bubbles of gas. Minimal dense fluid in the posterior pararenal space on the ri ght. Mild bilateral hydronephrosis. Stomach and bowel: Gaseous distention of large and small bowel loops without discernible transition p oint. Decompressed loops of small bowel noted on the right and intermittently elsewhere. Appendix: No findings to suggest acute appendicitis. PELVIS: Bladder: Dependent density posteriorly on the left and urinary bladder suggestive of tiny stones. Reproductive: Unremarkable. ABDOMEN and PELVIS: Intraperitoneal space: Small amount of free fluid around the spleen and in the pelvis. No free air. Bones/joints: Unremarkable. No acute fracture. Soft tissues: Unremarkable. Vasculature: Unremarkable. Lymph nodes: Multiple subcentimeter to mildly enlarged retroperitoneal lymph nodes. IMPRESSION: 1. Postprocedural changes involving both kidneys with multiple small stone fragments, collecting syst em air, and moderate perinephric and pararenal fluid with small amount of hematoma and mild hydroneph rosis. Tiny stones in the urinary bladder. Bulge along the lateral aspect of the right kidney presumably representing a lobulation, parenchymal lesion or subcapsular collection not excluded. 2. Gaseous distention of large and small bowel likely representing ileus. 3. Small amount of ascites. Small left pleural effusion. Thank you for allowing us to participate in the care of your patient. Dictated and Authenticated by: Maulik Robledo MD 05/17/2017 7:25 AM Central Time ([place] & [place]) FINAL REPORT CT ABDOMEN AND PELVIS WITHOUT CONTRAST: Date: 05/17/17 FINDINGS/IMPRESSION: I agree with the preliminary report given by Olivia. Compared to the exam of 05/13/12, the previously noted 2.5 cm calculus in the right kidney is not see n on the current exam. The left-sided pleural effusion has increased in size. POS: REY
[2017-05-17 14:45] LABS: #Eosinphils 0.1 thou/uL (0.0-0.7); #Monocytes 0.8 thou/uL (0.11-0.59); %Basophils 0.5 % (0.0-1.0); %Eosinophils 0.6 % (0.0-10.0); %Lymphocytes 10.2 % (21.0-51.0); %Monocytes 7.6 % (0.0-10.0); %Neutrophils 81.1 % (42.0-75.0); Hemoglobin 9.3 g/dL (12.0-16.0); Mean Corpuscular HGB CONC 32.7 g/dL (32.0-36.0); Mean Corpuscular Hemoglobin 30.4 pg (27.0-31.0); Mean Corpuscular Volume 92.8 fl (81.0-99.0); Mean Platelet Volume 6.7 fL (7.4-10.4); Platelet Count 267 thou/uL (130-400); RBC Distribution Width 13.7 % (11.5-14.5); Red Blood Cell (RBC) Count 3.07 mill/uL (4.20-5.40); White Blood Cell (WBC) Count 9.8 thou/uL (4.8-10.8)
[2017-05-17 15:20] LABS: ALT (SGPT) Less than 7 U/L (8-55); AST (SGOT) 13 U/L (5-34); Albumin 3.1 g/dL (3.5-5.0); Alkaline Phosphatase 83 U/L (40-150); Anion Gap 14 mmol/L (10-20); BUN (Urea Nitrogen) 6 mg/dL (9.8-20.1); Bilirubin, Total 0.5 mg/dL (0.2-1.2); Calc. Creatinine Clearance 66 mL/min (70-130); Calcium 8.5 mg/dL (7.8-10.44); Carbon Dioxide 23 mmol/L (22-29); Chloride 108 mmol/L (98-107); Estimated GFR-MDRD 72; Globulin 3.4 g/dL (2.4-3.5); Glucose 107 mg/dL (70-105); Potassium 2.8 mmol/L (3.5-5.1); Protein, Total 6.5 g/dL (6.0-8.3); Sodium 142 mmol/L (136-145)
--- NOTE | 2017-05-17 22:15 | DIS ---
DATE OF ADMISSION: 05/12/2017 DATE OF DISCHARGE: 05/17/2017 REASON FOR HOSPITAL ADMISSION: 1. Bilateral renal calculi, N20.0 - B. 2. History of extended spectrum beta-lactamases, recurrent Escherichia coli urinary tract infection with sepsis symptoms and bilateral kidney stone contamination. 3. History of pyelonephritis. 4. Recurrent urinary tract infection history. DISCHARGE DIAGNOSES: 1. Bilateral renal calculi, N20.0 - B. 2. History of extended spectrum beta-lactamases, recurrent Escherichia coli urinary tract infection with sepsis symptoms and bilateral kidney stone contamination. 3. History of pyelonephritis. 4. Recurrent urinary tract infection history. OPERATIVE PROCEDURES PERFORMED DURING HOSPITALIZATION: 1. Bilateral percutaneous nephrolithotomy with ultrasonic lithotripsy greater than 2 cm, [id number] on 05/16/2017 as a second look procedure. 2. Cystourethroscopy with bilateral stent placement, [id number] on 05/16/2015. 3. Left-sided percutaneous nephrolithotomy greater than 2.5 cm, [id number] on . 4. Right-sided percutaneous nephrolithotomy greater than 2.5 cm, [id number] on 05/12/2017. 5. Right-sided renal access with dilation, [id number] on 05/12/2017. BRIEF HISTORY AND INDICATION FOR HOSPITALIZATION AND PROCEDURE: Ms. 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 The patient had 5 ESBL UTIs within the last year, evidently the same organism and had progressively increasing resistance. The patient previously had pyelonephritis type symptoms as well as sepsis episode in the past. She had bilateral kidney stones identified on previous evaluation and did undergo a previous extracorporeal shockwave lithotripsy, which resulted in no clearance of stone. The patient presented to clinic and made an active decision to proceed with percutaneous left nephrolithotomy as treatment of her stones. HOSPITAL COURSE: The patient was admitted on 05/12/2017 and underwent a right- sided percutaneous nephrolithotomy greater than 2.5 cm and a right renal access with dilation. The patient tolerated the procedure well, but subsequent follow up CT scan imaging did not demonstrate complete clearance of stone. The patient opted to proceed with a second look PCNL procedure, which was performed on 05/16/2017. The patient during her hospitalization did have a bout of diarrhea was associated with recovery from her ileus and also antibiotic therapy. She did have testing for C. diff colitis, which turned out negative. The patient had initial fevers and antibiotic regimen was switched to vancomycin and Zosyn during the course of hospitalization. We did not culture any organisms out of her urine during her hospitalization and the patient was maintained on her IV antibiotic regimen through the postoperative day #1. DISCHARGE INSTRUCTIONS: The patient will follow up at the [facility] on , 05/22/2017 and a time to be scheduled with the patient. DISCHARGE MEDICATIONS: Include the followin. VESIcare 10 mg 1/2 to 1 tablet p.o. every day or every other day. 2. Tramadol 50 mg p.o. q.6 h. p.r.n. pain. 3. Macrobid 100 mg p.o. b.i.d. 4. Urocit-K 10 mEq p.o. t.i.d., this medication to be taken while sitting upright with adequate volumes of water and the patient should minimize use of her VESIcare while on that medication. The patient will continue using Premarin vaginal cream applied to the urethra on a nightly basis. WOUND SITE CARE: The patient has urostomy appliances on both the left and right percutaneous nephrostomy access sites. Her secondary access site on the right flank was suture closed in the operative suite. DISCHARGE DRAINS AND TUBES: The patient has bilateral indwelling double-J ureteral stents, which will need to undergo followup evaluation and assessment. She is known to have a 2 mm right ureteral stone and has an approximately 5 mm left renal calculus in place as well as some debris from her percutaneous nephrolithotomy. The patient will follow up in clinic to discuss scheduling for followup plans. 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 She intend to leave in place for about 6 weeks and obtain follow up imaging. The patient has significant residual stone burden that should probably to be addressed ureteroscopically after removal of her indwelling stents. The patient will continue on bladder spasm medications and pain medication as required. She may also take over the counter AZO as an additional agent. MTDD
[2017-05-22 10:21] LABS: CA Oxalate Dihydrate 10 % (.); CA Oxalate Monohydrate 10 % (.); CA Phosphate 65 % (.); CA Phosphate 80 % (.); Color Tan (.); Comment Note: (.); Mg Ammon Phos 30 % (.); Stone Weight 21.6 mg (.); Stone Weight 491.7 mg (.)
== END 2017-05-17 16:00 | disposition home or self-care (01) | DRG 660 ==
LOC: INTOOBSV 05-12 05:57 → SURG A 05-12 05:57 → OBSVTOIN 05-13 08:50
PROVIDERS: ADMIT Urology; ATTEND Urology
PROC: 0TC13ZZ Extirpation of Matter from Left Kidney, Percutaneous Approach (ICD-10-PCS; principal; 2017-05-12)
PROC: 0TC03ZZ Extirpation of Matter from Right Kidney, Percutaneous Approach (ICD-10-PCS; 2017-05-12)
PROC: 0TC13ZZ Extirpation of Matter from Left Kidney, Percutaneous Approach (ICD-10-PCS; 2017-05-16)
PROC: 0TC03ZZ Extirpation of Matter from Right Kidney, Percutaneous Approach (ICD-10-PCS; 2017-05-16)
PROC: 0T788DZ Dilation of Bilateral Ureters with Intraluminal Device, Via Natural or Artificial Opening Endoscopic (ICD-10-PCS; 2017-05-16)
DX: N20.2 Calculus of kidney with calculus of ureter (principal); K56.7 Ileus, unspecified; R50.82 Postprocedural fever; Z87.891 Personal history of nicotine dependence; I12.9 Hypertensive chronic kidney disease with stage 1 through stage 4 chronic kidney disease, or unspecified chronic kidney disease; N18.9 Chronic kidney disease, unspecified
CPT/HCPCS: 36415; 36430; 74018; 74176; 74425; 76001; 80048; 80053; 80202; 81001; 82365; 85014; 85018; 85025; 86850; 86900; 86901; 87040; 87086; 87324; 87449; 88300; 96374; A4216; C1758; C1769; J0670; J0690; J1100; J1940; J2001; J2250; J2270; J2405; J2543; J2550; J2704; J3010; J3370; J7050; P9016; Q9961

== ENCOUNTER 2017-05-05 07:24 | Day surgery (SDC) | payer OTHER ==
[2017-05-02 16:46] VITALS: BMI 19.0
[~2017-05-05 07:24] MED LIST changes: +FLU VACC QS2017-18 36 mo. & older 0.5 ML SYRINGE IM ONE; -Fentanyl 100 MCG/2 ML VIAL ONE; -Fentanyl 250 MCG/5 ML VIAL ONE; -Furosemide 20 MG/2 ML VIAL ONE; -Iothalamate Meglumine 60% 50 ML VIAL FS ONE; -Midazolam HCl 2 mg/2 ml Vial ONE; -Phenazopyridine HCl 97.5 MG TABLET ONE; -cefTRIAXone\\ROCEPHIN 2 GM in Sodium Chloride 0.9% 100 ML IVPB SCH
[2017-05-05 07:53] LABS: #Basophils 0.1 thou/uL (0.0-0.2); #Eosinphils 0.8 thou/uL (0.0-0.7); #Lymphocytes 1.7 thou/uL (1.20-3.40); #Monocytes 0.3 thou/uL (0.11-0.59); #Neutrophils 2.3 thou/uL (1.40-6.50); %Basophils 1.2 % (0.0-1.0); %Eosinophils 15.8 % (0.0-10.0); %Lymphocytes 31.9 % (21.0-51.0); %Monocytes 5.8 % (0.0-10.0); %Neutrophils 45.3 % (42.0-75.0); Hemoglobin 11.4 g/dL (12.0-16.0); Mean Corpuscular HGB CONC 31.8 g/dL (32.0-36.0); Mean Corpuscular Hemoglobin 30.2 pg (27.0-31.0); Mean Corpuscular Volume 94.8 fl (81.0-99.0); Mean Platelet Volume 6.7 fL (7.4-10.4); Platelet Count 301 thou/uL (130-400); Red Blood Cell (RBC) Count 3.77 mill/uL (4.20-5.40); White Blood Cell (WBC) Count 5.2 thou/uL (4.8-10.8)
[2017-05-05 08:00] LABS: PTT 29.1 SEC (22.9-36.1); Prothrombin Time 13.1 SEC (12.0-14.7)
[2017-05-05] MEDS ORDERED: Midazolam HCl 2 mg/2 ml Vial ONE ×2 (08:35→09:39)
[2017-05-05] MEDS ORDERED: Fentanyl 100 MCG/2 ML VIAL ONE ×2 (08:58→09:39)
[2017-05-05] MEDS ORDERED: cefTRIAXone\\ROCEPHIN 1 GM, Syringe 0.4 ML in Sterile Water 9.6 ML SLOW IVP ONE (09:00)
[2017-05-05 10:59] VITALS: BP 104/85; TEMP 98.8
[2017-05-05] MEDS ORDERED: Iopamidol 300 61% 50 ML VIAL FS ONE (11:17)
--- NOTE | 2017-05-05 12:33 | SPC ---
RIGHT PERCUTANEOUS NEPHROSTOMY CATHETER PLACEMENT LEFT PERCUTANEOUS NEPHROSTOMY CATHETER PLACEMENT: CONSCIOUS SEDATION: 3 mg Versed, IV. 150 mcg Fentanyl, IV. Fluoro time=15 minutes. FINDINGS: After explaining the procedure and answering all questions, the patient was placed on the fluoroscopy table in prone position. Over the course of the exam, a total of 50 cc Isovue 300 contrast was give n IV for opacification of the renal collecting systems. Sterile technique, buffered local anesthesia, conscious sedation, fluoroscopic guidance, and a right posterolateral approach were used to carefully advance a 22-gaute AccuStick needle to the right super ior pole calyx that was markedly dilated around a large stone. A small amount of contrast was inject ed to confirm position. A 0.018 guidewire was then placed, and AccuStick technique was used to place a 0.035 J-wire. The tract was dilated to 8 Colombian. An 8 Colombian Uresil catheter was placed at the r enal pelvis. The catheter was secured externally with 0 silk suture and buffered local anesthesia. The catheter was capped, given that the right system is not obstructed. Attention was then turned to the left kidney. Sterile technique, buffered local anesthesia, consciou s sedation, fluorosocpic guidance, and a left posterolateral approach were used to carefully advance a 22-gauge AccuStick needle to the mildly distended posterior inferior pole collecting system where s tones are present. A 0.018 guidewire was placed. AccuStick technique was then used to place a 0.035 J-wire into the collecting system. The tract was dilated to 8 Colombian, and an 8 Colombian Uresil cathet er was placed in the renal collecting system and capped, given that the system was not obstructed. T he catheter was secured externally with 0 silk suture and buffered local anesthesia. The patient tolerated the procedure well and was returned to the holding area in good condition for f urther monitoring. IMPRESSION: Technically successful bilateral percutaneous nephrostomy catheter placement. The patient will follo wup clinically with Dr. Goss. POS: [facility]
== END 2017-05-05 13:00 | disposition home or self-care (01) ==
LOC: SPEC 07:24
PROVIDERS: ATTEND Urology
PROC: 0TH533Z Insertion of Infusion Device into Kidney, Percutaneous Approach (ICD-10-PCS; principal; 2017-05-05)
DX: N39.0 Urinary tract infection, site not specified (principal); N95.2 Postmenopausal atrophic vaginitis; N20.0 Calculus of kidney; I12.9 Hypertensive chronic kidney disease with stage 1 through stage 4 chronic kidney disease, or unspecified chronic kidney disease; N18.9 Chronic kidney disease, unspecified; K21.0 Gastro-esophageal reflux disease with esophagitis; F17.210 Nicotine dependence, cigarettes, uncomplicated; Z79.899 Other long term (current) drug therapy; Z98.891 History of uterine scar from previous surgery; Z98.890 Other specified postprocedural states; Z87.440 Personal history of urinary (tract) infections
CPT/HCPCS: 36415; 50430; 50431; 50432; 82565; 85025; 85610; 85730; 99152; 99153; A4216; C1729; J0696; J2250; J3010

== ENCOUNTER 2017-07-23 09:23 | Outpatient (CLI) | payer OTHER | END 2017-07-23 09:24 | disposition home or self-care (01) | LOC: BICCT 09:23 | PROVIDERS: ATTEND Urology | DX: N20.0 Calculus of kidney (principal); Z96.0 Presence of urogenital implants | CPT/HCPCS: 74176 ==

== ENCOUNTER 2017-08-15 06:42 | Day surgery (SDC) | payer OTHER ==
[2017-08-14 16:38] VITALS: BMI 19.1
[2017-08-15] MEDS ORDERED: cefTRIAXone\\ROCEPHIN 2 GM in Sodium Chloride 0.9% 100 ML IVPB ONE (07:15)
[2017-08-15] MEDS ORDERED: cefTRIAXone\\ROCEPHIN 2 GM in Sodium Chloride 0.9% 100 ML IVPB SCH (07:15)
[2017-08-15 07:25] LABS: #Basophils 0.1 thou/uL (0.0-0.2); #Eosinphils 0.6 thou/uL (0.0-0.7); #Lymphocytes 1.9 thou/uL (1.20-3.40); #Monocytes 0.4 thou/uL (0.11-0.59); #Neutrophils 2.9 thou/uL (1.40-6.50); %Basophils 1.3 % (0.0-1.0); %Eosinophils 10.7 % (0.0-10.0); %Lymphocytes 32.7 % (21.0-51.0); %Monocytes 6.6 % (0.0-10.0); %Neutrophils 48.8 % (42.0-75.0); Hemoglobin 10.9 g/dL (12.0-16.0); Mean Corpuscular HGB CONC 33.4 g/dL (32.0-36.0); Mean Corpuscular Hemoglobin 31.5 pg (27.0-31.0); Mean Corpuscular Volume 94.4 fl (81.0-99.0); Platelet Count 260 thou/uL (130-400); RBC Distribution Width 15.3 % (11.5-14.5); Red Blood Cell (RBC) Count 3.45 mill/uL (4.20-5.40); White Blood Cell (WBC) Count 5.9 thou/uL (4.8-10.8)
[2017-08-15 07:50] LABS: Anion Gap 11 mmol/L (10-20); BUN (Urea Nitrogen) 14 mg/dL (9.8-20.1); Calc. Creatinine Clearance 55 mL/min (70-130); Calcium 9.6 mg/dL (7.8-10.44); Carbon Dioxide 27 mmol/L (22-29); Chloride 106 mmol/L (98-107); Estimated GFR-MDRD 59; Glucose 83 mg/dL (70-105); Sodium 140 mmol/L (136-145)
[2017-08-15] MEDS ORDERED: Fentanyl 100 MCG/2 ML VIAL ONE (09:20)
[2017-08-15] MEDS ORDERED: Lidocaine 4% Topical Sol 50 ML BOT ONE (09:35)
[2017-08-15] MEDS ORDERED: B & O ONE (11:33)
[2017-08-15] MEDS ORDERED: Morphine 4 MG/ML VIAL ONE (12:02)
--- NOTE | 2017-08-15 12:11 | OP ---
DATE OF PROCEDURE: 08/15/2017 POSTOPERATIVE DIAGNOSES: 1. Bilateral nephrolithiasis, 1020.0. 2. History of recurrent urinary tract infection due to infected stone. 3. History of urethral stricture disease and low estrogen state, currently on esterase treatment. POSTOPERATIVE DIAGNOSES: 1. Bilateral nephrolithiasis, 1020.0. 2. History of recurrent urinary tract infection due to infected stone. 3. History of urethral stricture disease and low estrogen state, currently on esterase treatment. 4. Bilateral stent placement. PROCEDURES PERFORMED: 1. Cystourethroscopy with bilateral ureteroscopy with laser lithotripsy, 20560. 2. Cystoscopy with bilateral stent placement, 88618. 3. Left-sided retrograde pyelography, 23947. 4. Female urethral dilation, 80479. SPECIMENS REMOVED: 1. Left renal stones. 2. Right renal stones, all for chemical analysis. ESTIMATED BLOOD LOSS: Less than 10 mL. COMPLICATIONS: None. BRIEF HISTORY AND INDICATION FOR PROCEDURE: Mr. Anu De Los Santos is a very pleasant 57-year-old Afri [place] female with a history of bilateral large kidney stones with recurrent urinary tract infe ction that could not be cleared. The patient had an infected kidney stones and underwent previous bi lateral percutaneous nephrolithotomy. She had some residual stone burden. She presented today for t reatment of bilateral residual stones by ureteroscopic means. TECHNICAL PROCEDURE: The patient was appropriately identified in the preoperative holding area. Inf ormed consent was obtained. The patient was brought to the operative suite, placed in the supine pos ition, prepped and draped in usual sterile fashion. Cystoscopic assessment was performed using a 22- Slovak cystoscope with a 30 degree lens. We introduced the scope using an obturator. The patient miranda s notable urethral stricture disease. During the course of the procedure, we performed urethral dila tion from 16 Slovak to 36 Slovak using metallic sounds. This achieved appropriate dilation of the pa tient's urethra. Cystoscopic evaluation was performed using the cystoscope, we identified left and r ight indwelling stents and removed both of those at the initiation of the procedure. We then perform ed a cystoscopic assessment again placing 2 wires into the patient's right ureter initially and then placed a 12/14 Slovak applied ureteral access sheath, 28 cm in length. This was advanced to the leve l of the renal pelvis and the obturator for that removed. We removed one of the 2 wires. We exclude d 1 wire when we placed the access sheath. Fluoroscopic assessment suggested proper positioning of t he sheath and we then advanced the ureteroscope in the patient's renal pelvis on the right. We ident ified 1 stone which was then fragmented using holmium laser into multiple fragments, we recovered jimmy e of these for chemical analysis, fragments too small for recovery using a 0 tip nitinol basket were left in place and were small enough in diameter that they should have no problem passing. We then p laced a new 4.5 Slovak x 28 cm double-J ureteral stent [employer] without a string. We then turned o ur attention to the patient's left side. We repeated almost an identical procedure except we found a much larger stone on this side. Here we utilized the holmium laser in dusting type settings with 0. 5 joules delivered at 20 Hz. again, dusted the stone into multiple small fragments, some of which we later recovered using a 0 tip nitinol basket. Specimens were sent for chemical analysis. We subsequ ently removed the access sheath and then utilized the previously excluded left-sided Glidewire for st ent placement. We again placed a 4.5 Slovak x 28 cm double-J ureteral stent in the patient's left co llecting system. We removed the string from that stent as well. The patient's bladder was completel y drained at the close of the procedure. A belladonna and opioid suppository was applied per rectum for bladder spasm control following the procedure. She tolerated the procedure well, subsequently aw akened and extubated and transported from the operative suite in good condition. COMPLICATIONS: None. DRAINS AND TUBES: The patient has bilateral 4.5 x 28 stents. SPECIMENS: Specimens are the left and right renal stones.
--- NOTE | 2017-08-15 12:53 | RAD ---
RETROGRADE IVP: History: Renal calculi. Comparison: None. FINDINGS: Intraoperative fluoroscopy provided for Dr. Goss. Fluoroscopic images demonstrate placement of bilat eral ureteral stents. There is dilatation of the right intrarenal collecting system. IMPRESSION: Fluoroscopy as above. POS: REY
[2017-08-15] MEDS ORDERED: Phenazopyridine HCl 97.5 MG TABLET ONE (13:00)
[2017-08-15] MEDS ORDERED: PROPOFOL 200 MG/20 ML VIAL ONE (13:49)
[2017-08-15] MEDS ORDERED: Labetalol 100 MG/20 ML MDV ONE (13:49)
[2017-08-15] MEDS ORDERED: Dexamethasone 20 MG/5 ML VIAL ONE (13:49)
[2017-08-15] MEDS ORDERED: diphenhydrAMINE 50 MG/ML VIAL ONE (13:49)
[2017-08-15] MEDS ORDERED: Ondansetron HCl/PF 4 MG/2 ML Vial ONE (13:49)
[2017-08-15] MEDS ORDERED: Glycopyrrolate 0.2 MG/ML 5 ML SYRINGE ONE (13:49)
[2017-08-15] MEDS ORDERED: Metoclopramide HCl 10 MG/2 ML VIAL ONE (13:49)
[2017-08-15] MEDS ORDERED: Lidocaine 1% PF 5 ML VIAL ONE (13:49)
[2017-08-21 16:17] LABS: CA Phosphate 90 % (.); CA Phosphate 93 % (.); Color Tan (.); Comment Note: (.); Stone Weight 18.4 mg (.)
== END 2017-08-15 14:45 | disposition home or self-care (01) ==
LOC: SDC 06:42
PROVIDERS: ATTEND Urology
PROC: 0TF48ZZ Fragmentation in Left Kidney Pelvis, Via Natural or Artificial Opening Endoscopic (ICD-10-PCS; principal; 2017-08-15)
PROC: 0T768DZ Dilation of Right Ureter with Intraluminal Device, Via Natural or Artificial Opening Endoscopic (ICD-10-PCS; principal; 2017-08-15)
PROC: 0TF38ZZ Fragmentation in Right Kidney Pelvis, Via Natural or Artificial Opening Endoscopic (ICD-10-PCS; principal; 2017-08-15)
DX: N20.0 Calculus of kidney (principal); N35.9 Urethral stricture, unspecified; Z87.440 Personal history of urinary (tract) infections; Z87.442 Personal history of urinary calculi; Z79.899 Other long term (current) drug therapy
CPT/HCPCS: 36415; 74420; 80048; 82365; 85025; 88300; 96374; C1758; C1769; J0696; J1100; J1200; J2001; J2270; J2405; J2704; J2765; J3010; J7050

== ENCOUNTER 2017-08-28 08:50 | Outpatient (CLI) | payer OTHER ==
--- NOTE | 2017-08-28 09:33 | RAD ---
KUB: COMPARISON: 05/12/[address] study of 05/17/17. FINDINGS: There has been placement of bilateral ureteral stents since the previous KUB. There are some tiny ca lcifications near the proximal end of the right ureteral stent. I do not see any definite ureteral c alculi or left renal calcifications. IMPRESSION: Small calcifications adjacent to the proximal end of the right ureteral stent. POS: BEL
== END 2017-08-28 08:51 | disposition home or self-care (01) ==
LOC: RAD 08:50
PROVIDERS: ATTEND Urology
DX: Z48.816 Encounter for surgical aftercare following surgery on the genitourinary system (principal); Z98.890 Other specified postprocedural states; N20.1 Calculus of ureter
CPT/HCPCS: 74018

== ENCOUNTER 2018-01-20 10:41 | Outpatient (CLI) | payer OTHER ==
--- NOTE | 2018-01-20 12:03 | CT ---
CT OF ABDOMEN AND PELVIS PERFORMED WITHOUT CONTRAST ENHANCEMENT: History: Patient complaining of left flank pain. History of previous surgery for stone removal. Comparison: 05-17-17 FINDINGS: The lung bases are clear. There is a stable hypodensity within the right lobe of the liver. The spleen is within normal limits of size. Pancreas region is unremarkable. Gallbladder region also appears unremarkable. Right and left adrenal glands are normal in appearance. Bilateral nonobstructing renal calculi are pr esent. Some of the calcifications in the left kidney actually are in the posterior cortex of the left kidney, and even extrinsic to the kidneys, usually calcifications are along the previous path of the nephrostomy tube. I do not see any ureteral calculi. There are some calcifications in the pelvis but these are shown to be extrinsic to the ureter on the previous exam. No significant periaortic or mes enteric adenopathy. CT OF PELVIS PERFORMED WITHOUT CONTRAST ENHANCEMENT: No adenopathy, mass or free fluid. The appendix region appears unremarkable. IMPRESSION: Bilateral nonobstructing renal calculi. POS: REY
== END 2018-01-20 10:42 | disposition home or self-care (01) ==
LOC: BICCT 10:41
PROVIDERS: ATTEND Physician Assistant
DX: R10.9 Unspecified abdominal pain (principal); N20.0 Calculus of kidney
CPT/HCPCS: 74176

== ENCOUNTER 2020-04-09 09:43 | Emergency (ER) | payer OTHER ==
[2020-04-09] MEDS ORDERED: Iopamidol-370 76% 500 ML 1 ML ONE (09:45)
[2020-04-09] MEDS ORDERED: Dexamethasone 4 mg/ml Vial ONE (10:53)
--- NOTE | 2020-04-09 11:03 | RAD ---
XR Chest 1 View Portable History: Dyspnea Comparison: None. Findings: Background lung hyperinflation. Faint opacity left lung base. No pneumothorax.. Impression: Faint opacity left lung base concerning for infection. Follow-up after treatment recommen ded.
[2020-04-09] MEDS ORDERED: cefTRIAXone\\ROCEPHIN 2 GM VIAL ONE (11:09)
[2020-04-09] MEDS ORDERED: Sodium Chloride 0.9% 100 ML ONE (11:09)
[2020-04-09 11:21] LABS: #Basophils 0.1 thou/uL (0.0-0.2); #Eosinphils 0.5 thou/uL (0.0-0.7); #Lymphocytes 1.4 thou/uL (1.20-3.40); #Monocytes 0.6 thou/uL (0.11-0.59); %Basophils 0.9 % (0.0-1.0); %Eosinophils 5.1 % (0.0-10.0); %Lymphocytes 14.7 % (21.0-51.0); %Neutrophils 73.2 % (42.0-75.0); Hemoglobin 13.1 g/dL (12.0-16.0); Mean Corpuscular HGB CONC 33.5 g/dL (32.0-36.0); Mean Corpuscular Hemoglobin 32.5 pg (27.0-31.0); Mean Corpuscular Volume 97.1 fL (78.0-98.0); Mean Platelet Volume 7.9 fL (7.4-10.4); Platelet Count 225 thou/uL (130-400); RBC Distribution Width 12.4 % (11.5-14.5); Red Blood Cell (RBC) Count 4.02 mill/uL (4.20-5.40); White Blood Cell (WBC) Count 9.5 thou/uL (4.8-10.8)
[2020-04-09 11:43] LABS: ALT (SGPT) 8 U/L (8-55); AST (SGOT) 16 U/L (5-34); Albumin 4.3 g/dL (3.5-5.0); Alkaline Phosphatase 89 U/L (40-110); Anion Gap 16 mmol/L (10-20); BUN (Urea Nitrogen) 10 mg/dL (9.8-20.1); Bilirubin, Total 0.6 mg/dL (0.2-1.2); CK (CPK) 197 U/L (29-168); Calc. Creatinine Clearance 0 mL/min (70-130); Calcium 9.5 mg/dL (7.8-10.44); Carbon Dioxide 25 mmol/L (22-29); Chloride 103 mmol/L (98-107); Globulin 2.9 g/dL (2.4-3.5); Glucose 83 mg/dL (70-105); Lipase 9 U/L (8-78); Potassium 3.2 mmol/L (3.5-5.1); Protein, Total 7.2 g/dL (6.0-8.3); Sodium 141 mmol/L (136-145)
--- NOTE | 2020-04-09 13:00 | CT ---
CTA Angio Chest W WO Con History: Shortness of breath and cough. Body aches Comparison: Chest radiograph same day Findings: CT angiogram chest performed after the intravenous administration of contrast. 3-D renderin g provided. Mild left lower lobe pneumonia. There is also small volume consolidative process the right lower lobe medial basal segment. No pneumothorax. No proximal segmental pulmonary arterial filling defect. The aortic contour is nonaneurysmal. Upper abdomen is without acute inflammatory process. Thoracic spine is intact. Sternum and manubrium are intact. Impression: 1. Lower lobe pneumonia, worse on the left, which has appearance of either aspiration or bacterial pn eumonia. Findings do not match the imaging findings of COVID-19 pneumonia. Follow-up after treatment recommended. 2. Mild background emphysema. 3. No pulmonary embolism.
[2020-04-09 18:06] LABS: SARS-CoV-2 PCR by NAA Not Detected (NotDetected)
== END 2020-04-09 14:14 | disposition home or self-care (01) ==
LOC: ERS 09:43
DX: J18.9 Pneumonia, unspecified organism (principal); E87.6 Hypokalemia; Z20.822 Contact with and (suspected) exposure to COVID-19; E03.9 Hypothyroidism, unspecified; I10 Essential (primary) hypertension; K21.9 Gastro-esophageal reflux disease without esophagitis; F17.210 Nicotine dependence, cigarettes, uncomplicated; Z79.899 Other long term (current) drug therapy
CPT/HCPCS: 71045; 71275; 80053; 82550; 83690; 83880; 84484; 85025; 85379; 87635; 93005; 96374; 96375; J0696; J1100; J3490; Q9967; U0003; U0005

== ENCOUNTER 2020-04-23 07:13 | Emergency (ER) | payer OTHER ==
[2020-04-23] MEDS ORDERED: Morphine 4 MG/ML VIAL ONE ×2 (07:34→08:59)
[2020-04-23] MEDS ORDERED: Ondansetron PF 4 MG/2 ML Vial ONE (07:35)
[2020-04-23 07:55] LABS: #Eosinphils 0.3 thou/uL (0.0-0.7); #Lymphocytes 1.6 thou/uL (1.20-3.40); #Monocytes 0.3 thou/uL (0.11-0.59); #Neutrophils 4.9 thou/uL (1.40-6.50); %Basophils 0.4 % (0.0-1.0); %Eosinophils 3.6 % (0.0-10.0); %Lymphocytes 22.4 % (21.0-51.0); %Monocytes 4.8 % (0.0-10.0); %Neutrophils 68.8 % (42.0-75.0); Hemoglobin 13.4 g/dL (12.0-16.0); Mean Corpuscular HGB CONC 33.9 g/dL (32.0-36.0); Mean Corpuscular Hemoglobin 33.2 pg (27.0-31.0); Mean Corpuscular Volume 97.9 fL (78.0-98.0); Mean Platelet Volume 7.4 fL (7.4-10.4); Platelet Count 328 thou/uL (130-400); RBC Distribution Width 12.8 % (11.5-14.5); Red Blood Cell (RBC) Count 4.03 mill/uL (4.20-5.40); White Blood Cell (WBC) Count 7.1 thou/uL (4.8-10.8)
--- NOTE | 2020-04-23 08:00 | RAD ---
RADIOGRAPH CHEST 1 VIEW: DATE: 04/23/2020 HISTORY: 60-year-old female with cough FINDINGS: There are no airspace densities, pulmonary edema, pneumothorax, or cardiomegaly. IMPRESSION: No acute cardiopulmonary findings.
[2020-04-23 08:15] LABS: Bilirubin Negative (Negative); Blood, Urine Negative (Negative); Clarity Clear (Clear); Glucose, Urine (Dipstick) Normal (Negative); Ketone, Urine Negative (Negative); Leukocyte Negative Leu/uL (Negative); Nitrite Negative (Negative); Protein, Urine (Dipstick) Negative (Neg-Trace); Specific Gravity, Urine 1.006 (1.002-1.036); Urobilinogen Normal mg/dL (Less than 2); pH, Urine 7.5 (5.0-9.0)
--- NOTE | 2020-04-23 08:41 | CT ---
EXAM: Abdomen and pelvic CT scan without contrast: HISTORY: Abdominal pain left flank pain COMPARISON: 01/20/2018 FINDINGS: Lungs:Minimal linear changes in the left base having more chronic appearance. Liver: Small stable 1.2 cm right lobe of liver cyst. Gallbladder:Unremarkable. Common bile duct:Normal Pancreas:Unremarkable Spleen:Unremarkable. Adrenal glands:Unremarkable. Kidneys:Multiple bilateral renal and perirenal calcifications some of which are certainly not within the collecting system. I certainly cannot exclude some nonobstructing renal calculi. No evidence for acute obstruction. No solid or cystic renal mass. No evidence for bowel obstruction. Aorta:No evidence for aneurysm. Spine:No significant acute process. No CT evidence for acute appendicitis. The urinary bladder is unremarkable. Reproductive system:Unremarkable as visualized. Hernias:Bilateral fat-containing small inguinal and umbilical hernias. No abscess, adenopathy, or abnormal fluid collection within the abdomen or pelvis. IMPRESSION: Multiple bilateral renal and perirenal calcifications many of which are not within the region of the collecting system although I certainly cannot exclude some nonobstructing renal calculi. No evidence for other significant acute process. No evidence for obstructing calculus.
[2020-04-23] MEDS ORDERED: Ketorolac Tromethamine 30 MG/ML VIAL ONE (08:59)
--- NOTE | 2020-04-23 09:22 | RAD ---
Radiograph right foot 3 views: 04/23/2020 HISTORY: 60-year-old female with persistent right foot pain after blunt trauma one month ago FINDINGS: There is a comminuted, mostly nondisplaced fracture of the first proximal phalanx. This includes sagi ttal component throughout the diaphysis, and oblique components at the head and base. There is minimal displacement at the first IP articular surface. Mildly comminuted, mildly displaced fractures at lateral base of first distal phalanx and diaphysis o f first distal phalanx, involving distal tuft. Intra-articular component at lateral aspect of first IP joint space with minimal displacement. No dislocation. Soft tissue swelling of great toe. No other fractures in rest of foot. IMPRESSION: Comminuted, minimally displaced fractures of the first proximal phalanx and first distal phalanx of t he right great toe. Intra-articular components at first interphalangeal joint. By history, this is subacute.
[2020-04-23 09:31] LABS: ALT (SGPT) 8 U/L (8-55); AST (SGOT) 12 U/L (5-34); Albumin 3.7 g/dL (3.5-5.0); Alkaline Phosphatase 76 U/L (40-110); Anion Gap 10 mmol/L (10-20); BUN (Urea Nitrogen) 8 mg/dL (9.8-20.1); Bilirubin, Total 0.3 mg/dL (0.2-1.2); Calc. Creatinine Clearance 0 mL/min (70-130); Calcium 8.7 mg/dL (7.8-10.44); Carbon Dioxide 29 mmol/L (22-29); Chloride 107 mmol/L (98-107); Globulin 2.9 g/dL (2.4-3.5); Glucose 87 mg/dL (70-105); Lipase 13 U/L (8-78); Potassium 3.3 mmol/L (3.5-5.1); Protein, Total 6.6 g/dL (6.0-8.3); Sodium 143 mmol/L (136-145)
[2020-04-23] MEDS ORDERED: Hydrochlorothiazide 25 MG TAB PO SCH (10:00)
== END 2020-04-23 11:25 | disposition home or self-care (01) ==
LOC: ERS 07:13
DX: R10.9 Unspecified abdominal pain (principal); M54.5 Low back pain; E03.9 Hypothyroidism, unspecified; I10 Essential (primary) hypertension; K21.9 Gastro-esophageal reflux disease without esophagitis; F17.210 Nicotine dependence, cigarettes, uncomplicated; Z79.899 Other long term (current) drug therapy
CPT/HCPCS: 36415; 71045; 74176; 80053; 81003; 83605; 83690; 85025; 93005; 96374; 96375; 96376; J1885; J2270; J2405

== ENCOUNTER 2020-06-23 10:59 | Outpatient (CLI) | payer OTHER ==
[2020-06-23 11:59] LABS: #Eosinphils 0.4 10x3/uL (0.0-0.5); #Monocytes 0.3 10x3/uL (0.0-1.1); #Neutrophils 2.5 10x3/uL (1.5-8.4); %Basophils 0.8 % (0.0-2.0); %Eosinophils 7.5 % (0.0-6.0); %Lymphocytes 34.2 % (18.0-47.0); %Monocytes 6.7 % (0.0-10.0); %Neutrophils 50.6 % (40.0-75.0); Hemoglobin 12.7 g/dL (12.0-15.5); Mean Corpuscular HGB CONC 32.4 g/dL (32.0-36.0); Mean Corpuscular Hemoglobin 30.5 pg (27.0-33.0); Mean Platelet Volume 9.9 fl (7.4-10.4); Platelet Count 272 10x3/uL (150-450); RBC Distribution Width 14.5 % (11.5-14.5); Red Blood Cell (RBC) Count 4.17 10x6/uL (3.90-5.03); White Blood Cell (WBC) Count 4.9 10x3/uL (3.5-10.5)
[2020-06-23 12:34] LABS: Anion Gap 12 mmol/L (10-20); BUN (Urea Nitrogen) 18 mg/dL (9.8-20.1); Calc. Creatinine Clearance 0 mL/min (70-130); Calcium 10.3 mg/dL (7.8-10.44); Carbon Dioxide 31 mmol/L (22-29); Chloride 102 mmol/L (98-107); Glucose 81 mg/dL (70-105); Potassium 3.4 mmol/L (3.5-5.1); Sodium 142 mmol/L (136-145)
[2020-06-24 01:24] LABS: SARS-CoV-2 PCR by NAA Not Detected (NotDetected)
== END 2020-06-23 11:00 | disposition home or self-care (01) ==
LOC: LABBT 10:59
PROVIDERS: ATTEND Specialist
DX: Z01.818 Encounter for other preprocedural examination (principal); M79.89 Other specified soft tissue disorders; S92.912A Unspecified fracture of left toe(s), initial encounter for closed fracture; Z20.822 Contact with and (suspected) exposure to COVID-19
CPT/HCPCS: 80048; 85025; 87635; 93005; 93010; U0003; U0005

== ENCOUNTER 2020-06-28 09:34 | Day surgery (SDC) | payer OTHER ==
[2020-06-27 13:56] VITALS: BMI 20.3
[2020-06-28] MEDS ORDERED: Acetaminophen 500 MG TAB ONE (09:53)
[2020-06-28] MEDS ORDERED: Ketorolac Tromethamine 30 MG/ML VIAL ONE (09:53)
[2020-06-28] MEDS ORDERED: Bupivacaine PF 0.5% 30 ML VIAL ONE (11:32)
[2020-06-28] MEDS ORDERED: Lidocaine 1% w/Epinephrine 1:100K 20 ML VIAL ONE (11:32)
[2020-06-28] MEDS ORDERED: Fentanyl 100 MCG/2 ML VIAL ONE (11:33)
[2020-06-28] MEDS ORDERED: Midazolam HCl 2 mg/2 ml Vial ONE (11:33)
[2020-06-28] MEDS ORDERED: Propofol 500 MG/50 ML VIAL ONE (11:36)
[2020-06-28] MEDS ORDERED: Lidocaine 1% PF 5 ML VIAL ONE (11:47)
[2020-06-28] MEDS ORDERED: PROPOFOL 200 MG/20 ML VIAL ONE (11:47)
== END 2020-06-28 14:00 | disposition home or self-care (01) ==
LOC: SDC 09:34
PROVIDERS: ATTEND Specialist
PROC: 0JB10ZZ Excision of Face Subcutaneous Tissue and Fascia, Open Approach (ICD-10-PCS; principal; 2020-06-28)
DX: D17.0 Benign lipomatous neoplasm of skin and subcutaneous tissue of head, face and neck (principal); K21.9 Gastro-esophageal reflux disease without esophagitis; Z79.899 Other long term (current) drug therapy
CPT/HCPCS: 88304; J0690; J1885; J2250; J2704; J3010; S0020

== ENCOUNTER 2020-09-30 15:53 | Emergency (ER) | payer OTHER | END 2020-09-30 18:18 | disposition home or self-care (01) | LOC: ERS 15:53 | DX: M79.674 Pain in right toe(s) (principal); E78.5 Hyperlipidemia, unspecified; E78.00 Pure hypercholesterolemia, unspecified; I10 Essential (primary) hypertension; K21.9 Gastro-esophageal reflux disease without esophagitis; F17.210 Nicotine dependence, cigarettes, uncomplicated; Z79.899 Other long term (current) drug therapy ==

== ENCOUNTER 2021-03-13 10:09 | Emergency (ER) | payer OTHER ==
[2021-03-13 10:54] LABS: #Eosinphils 0.4 thou/uL (0.0-0.7); #Lymphocytes 1.4 thou/uL (1.20-3.40); #Monocytes 0.3 thou/uL (0.11-0.59); #Neutrophils 2.4 thou/uL (1.40-6.50); %Basophils 0.6 % (0.0-1.0); %Eosinophils 9.4 % (0.0-10.0); %Lymphocytes 30.6 % (21.0-51.0); %Monocytes 5.7 % (0.0-10.0); %Neutrophils 53.7 % (42.0-75.0); Hemoglobin 11.8 g/dL (12.0-16.0); Mean Corpuscular HGB CONC 32.1 g/dL (32.0-36.0); Mean Corpuscular Hemoglobin 31.6 pg (27.0-31.0); Mean Corpuscular Volume 98.2 fL (78.0-98.0); Mean Platelet Volume 7.3 fL (7.4-10.4); Platelet Count 276 thou/uL (130-400); RBC Distribution Width 13.1 % (11.5-14.5); Red Blood Cell (RBC) Count 3.75 mill/uL (4.20-5.40); White Blood Cell (WBC) Count 4.4 thou/uL (4.8-10.8)
[2021-03-13 11:19] LABS: Troponin I Less than 0.010 ng/mL (< 0.028)
[2021-03-13 11:20] LABS: ALT (SGPT) 11 U/L (8-55); AST (SGOT) 14 U/L (5-34); Albumin 4.1 g/dL (3.5-5.0); Alkaline Phosphatase 82 U/L (40-110); Anion Gap 11 mmol/L (10-20); BUN (Urea Nitrogen) 11 mg/dL (9.8-20.1); Bilirubin, Total 0.4 mg/dL (0.2-1.2); Calc. Creatinine Clearance 0 mL/min (70-130); Calcium 9.9 mg/dL (7.8-10.44); Carbon Dioxide 29 mmol/L (22-29); Chloride 104 mmol/L (98-107); Globulin 2.9 g/dL (2.4-3.5); Glucose 92 mg/dL (70-105); Lipase 18 U/L (8-78); Sodium 141 mmol/L (136-145)
[2021-03-13 11:29] LABS: Potassium 2.9 mmol/L (3.5-5.1)
[2021-03-13] MEDS ORDERED: Famotidine/PF 20 mg/2ml Vial ONE (11:38)
[2021-03-13] MEDS ORDERED: Pantoprazole 40 MG VIAL ONE ×2 (11:38→11:39)
[2021-03-13] MEDS ORDERED: Water For Inject, Bacteriostat 0 ML ONE (11:39)
[2021-03-13] MEDS ORDERED: Potassium Chloride 20 MEQ TAB ONE (12:17)
== END 2021-03-13 12:45 | disposition home or self-care (01) ==
LOC: ERS 10:09
DX: R10.9 Unspecified abdominal pain (principal); E78.5 Hyperlipidemia, unspecified; E78.00 Pure hypercholesterolemia, unspecified; I10 Essential (primary) hypertension; K21.9 Gastro-esophageal reflux disease without esophagitis; F17.210 Nicotine dependence, cigarettes, uncomplicated; Z79.899 Other long term (current) drug therapy
CPT/HCPCS: 36415; 71045; 74177; 80053; 83690; 84484; 85025; 93005; 96374; 96375; C9113; S0028

== ENCOUNTER 2022-03-30 21:36 | Emergency (ER) | payer OTHER ==
[~2022-03-30 21:36] MED LIST changes: -FLU VACC QS2017-18 36 mo. & older 0.5 ML SYRINGE IM ONE; +Iopamidol-370 76% 500 ML 1 ML ONE
[2022-03-30] MEDS ORDERED: Ondansetron PF 4 MG/2 ML Vial ONE (22:25)
[2022-03-30] MEDS ORDERED: Morphine 4 MG/ML VIAL ONE (22:25)
[2022-03-30 22:43] LABS: #Eosinphils 0.5 thou/uL (0.0-0.7); #Monocytes 0.6 thou/uL (0.11-0.59); #Neutrophils 6.8 thou/uL (1.40-6.50); %Basophils 0.4 % (0.0-1.0); %Eosinophils 4.7 % (0.0-10.0); %Lymphocytes 19.9 % (21.0-51.0); %Monocytes 6.4 % (0.0-10.0); %Neutrophils 68.7 % (42.0-75.0); Hemoglobin 11.6 g/dL (12.0-16.0); Mean Corpuscular HGB CONC 32.6 g/dL (32.0-36.0); Mean Corpuscular Hemoglobin 31.3 pg (27.0-31.0); Mean Corpuscular Volume 95.9 fl (78.0-98.0); Mean Platelet Volume 7.4 fL (7.4-10.4); Platelet Count 264 10x3/uL (130-400); RBC Distribution Width 12.5 % (11.5-14.5); Red Blood Cell (RBC) Count 3.72 mill/uL (4.20-5.40); White Blood Cell (WBC) Count 9.9 10x3/uL (4.8-10.8)
[2022-03-30 23:06] LABS: ALT (SGPT) Less than 7 U/L (8-55); AST (SGOT) 13 U/L (5-34); Albumin 4.3 g/dL (3.4-4.8); Alkaline Phosphatase 90 U/L (40-110); Anion Gap 13 mmol/L (10-20); BUN (Urea Nitrogen) 16 mg/dL (9.8-20.1); Bilirubin, Total 0.3 mg/dL (0.2-1.2); Calc. Creatinine Clearance 0 mL/min (70-130); Calcium 9.6 mg/dL (7.8-10.44); Carbon Dioxide 26 mmol/L (23-31); Chloride 105 mmol/L (98-107); Estimated GFR 68; Globulin 3.1 g/dL (2.4-3.5); Glucose 87 mg/dL (80-115); Potassium 2.8 mmol/L (3.5-5.1); Protein, Total 7.4 g/dL (5.8-8.1); Sodium 141 mmol/L (136-145)
[2022-03-30 23:11] LABS: PTT 31.9 sec (22.9-36.1); Prothrombin Time 13.3 sec (12.0-14.7)
[2022-03-30] MEDS ORDERED: Potassium Chloride 20 MEQ/100 ML PREMIX BAG ONE (23:46)
[2022-03-31] MEDS ORDERED: Lidocaine 2% PF 5 ML VIAL ONE (00:04)
[2022-03-31] MEDS ORDERED: Fentanyl 100 MCG/2 ML VIAL ONE (00:04)
[2022-03-31] MEDS ORDERED: Potassium Chloride 20 MEQ TAB ONE (00:46)
== END 2022-03-31 00:53 | disposition home or self-care (01) ==
LOC: ERS 21:36
DX: K61.1 Rectal abscess (principal); E87.6 Hypokalemia; E78.00 Pure hypercholesterolemia, unspecified; K21.9 Gastro-esophageal reflux disease without esophagitis; I10 Essential (primary) hypertension; F17.210 Nicotine dependence, cigarettes, uncomplicated
CPT/HCPCS: 36415; 46040; 74177; 80053; 85025; 85610; 85730; 96374; 96375; J2001; J2270; J2405; J3010; J3480; Q9967

== ENCOUNTER 2022-05-20 13:46 | Outpatient (CLI) | payer OTHER | END 2022-05-20 13:47 | disposition home or self-care (01) | LOC: RAD-FRANK 13:46 | PROVIDERS: ATTEND Nurse Practitioner Family | DX: M25.512 Pain in left shoulder (principal) ==